=== PATIENT | male | born 1980 | race Caucasian/White ===

== ENCOUNTER 2016-06-03 23:28 | Emergency (ER) | payer OTHER ==
[~2016-06-03] VITALS: Ht 175.3 cm; Wt 96.6 kg
[~2016-06-03 23:28] MED LIST: MELA1TAB49 PO
[2016-06-03 23:44] VITALS: TEMP 36.5; Ht 175.3 cm; Wt 96.6 kg
[2016-06-04] MEDS ORDERED: OXYC1TAB3 PO (00:04)
[2016-06-04] MEDS ORDERED: PENI-82 PO (00:04)
[2016-06-04] MEDS ORDERED: ATOR10TA88 PO (00:08)
[2016-06-04] MEDS ORDERED: MELO7.5T5 PO (00:08)
--- NOTE | 2016-06-04 00:08 | EMERGENCY ROOM VISIT NOTE ---
History First contact with patient: 23:46 Chief Complaint: FACIAL PAIN/INJURY Stated Complaint: FACIAL PAIN, DENTAL PAIN History of Present Illness The patient is a 36 year old male who presents to the Emergency Room with complaints of left lower dental pain. The patient reports that he noticed some discomfort in his gum approximately 2 weeks ago. It appears to be spreading rearward. He reports that the pain was intermittent in nature initially, but is now becoming more constant. He reports that the pain significantly worsen tonight after eating a hot cheesesteak sub. He has not noticed any drainage or foul taste. He rates his discomfort a 2 out of 10 at this point, but rates his pain a 10 out of 10 at its worst. Review of Systems 10 system review was performed and was negative except for pertinent positives and negatives as indicated in history of present illness Past Medical/Surgical History Surgical Problems: (1) Hx of tonsillectomy Family History Cancer Diabetes mellitus Heart disease Hypertension Social History Smoking Status: Never Smoker Alcohol Use: occasionally Marital Status: single Housing Status: lives with roommate Occupation Status: employed Current/Historical Medications Scheduled Penicillin V Potassium (Veetids), 500 MG PO QID Scheduled PRN Melatonin (Melatonin), 3 MG PO HS PRN for Sleep Oxycodone Ir (Roxicodone Ir), 1-2 TAB PO Q4H PRN for Pain Allergies Coded Allergies: Fexofenadine (Verified Allergy, Unknown, 01/22/16) Molds and Smuts (Verified Allergy, Unknown, 01/22/16) Terfenadine (Verified Allergy, Unknown, 01/22/16) Uncoded Allergies: SPRINGER (Allergy, Unknown, allergy, 10/08/14) Physical Exam Vital Signs Date Time Temp Pulse Resp B/P Pulse Ox O2 Delivery O2 Flow Rate FiO2 06/03/16 23:44 36.5 61 20 145/80 96 Room Air Physical Exam CONSTITUTIONAL: Healthy and well nourished. Alert and oriented X 3 with positive affect. HEENT: Normocephalic, atraumatic. Pupils equal, round and reactive. No facial edema noted. OROPHARYNX: The patient has no obvious mandibular gingival erythema, fluctuance or pointing. He does have mild discomfort with percussion of several anterior teeth. Mild gingivitis is appreciated. No evidence for Dioni's angina or pharyngeal abscess. NECK: Full active range of motion without discomfort. LYMPHATICS: No cervical chain adenopathy. MUSCULOSKELETAL: Full range of motion of all joints without discomfort. INTEGUMENTARY: No rash or other significant dermatologic conditions noted. NEUROLOGIC: Facial sensations are intact. Medical Decision & Procedures ED Course Patient history and physical exam were performed. Nurse's notes were reviewed. The patient was provided home packs and prescriptions for Pen-Vee K and OxyIR 5 mg. He was also encouraged to alternate ibuprofen and Tylenol for baseline pain relief. The patient was instructed to follow-up with his dentist for further definitive management. The patient was happy with plan of care, voiced understanding of all discharge instructions, and rated his pain a 2 out of 10 at the time of discharge. Medical Decision Impression Primary Impression: Pain, dental Departure Information Dispostion Home / Self-Care Prescriptions Oxycodone Ir (Roxicodone Ir) 5 Mg Tab 1-2 TAB PO Q4H Y for Pain, #15 TAB For Initial Treatment Prov: Elier Caceres PA 06/04/16 Penicillin V Potassium (Veetids) 500 Mg Tab 500 MG PO QID, #40 TAB Prov: Elier Caceres PA 06/04/16 Forms HOME CARE DOCUMENTATION FORM, IMPORTANT VISIT INFORMATION Patient Instructions My [facility] [address] Additional Instructions Finish all Pen-Vee K antibiotics as prescribed. Ibuprofen 800 mg and/or Tylenol 1000 mg every 8 hours. You may also alternate these medications for more effective pain relief: Ibuprofen --4 HRS--> Tylenol --4 HRS--> ibuprofen --4 HRS--> Tylenol .... OxyIR if needed for worse pain. Do not drink or drive while taking OxyIR. Soft foods. Follow-up with your dentist for definitive care.
[2016-06-04] MEDS ORDERED: OXYCODONE IR HOME PACK PO ONE (00:15)
[2016-06-04] MEDS ORDERED: PENICILLIN HOME PACK 500MG (4 DOSES)BTL PO ONE (00:15)
[2016-06-04 00:27] VITALS: BP 116/56; PULSE 62; O2SAT 98
== END 2016-06-04 00:30 | disposition home or self-care (01) ==
LOC: C.EDB 23:28
DX: K08.89 Other specified disorders of teeth and supporting structures (principal); Z98.890 Other specified postprocedural states; Z88.8 Allergy status to other drugs, medicaments and biological substances; Z91.09 Other allergy status, other than to drugs and biological substances; Z80.9 Family history of malignant neoplasm, unspecified; Z83.3 Family history of diabetes mellitus; Z82.49 Family history of ischemic heart disease and other diseases of the circulatory system

== ENCOUNTER → 2016-08-11 | Outpatient (CLI) | payer OTHER ==
[~2016-08-11] MED LIST changes: +ATOR10TA82 PO; -MELA1TAB49 PO; +MELO7.5T5 PO; +OXYC1TAB3 PO; +PENI-82 PO
[2016-08-11 10:42] LABS: ALT/SGPT 67 U/L (12-78); AST/SGOT 25 U/L (15-37); BLOOD UREA NITROGEN 23 mg/dl (7-18); CALCIUM 9.2 mg/dl (8.5-10.1); CARBON DIOXIDE 28 mmol/L (21-32); CHLORIDE 103 mmol/L (98-107); GLUCOSE 88 mg/dl (70-99); POTASSIUM 3.6 mmol/L (3.5-5.1); SODIUM 138 mmol/L (136-145)
[2016-08-11 10:44] LABS: ALB/GLOB RATIO 1.1 (0.9-2); ALKALINE PHOSPHATASE 63 U/L (45-117); CHOLESTEROL 183 mg/dl (0-200); CHOLESTEROL/HDL RATIO 3.7; HDL CHOLESTEROL 50 mg/dl; LDL CHOLESTEROL CALCULATED 113 mg/dl; TRIGLYCERIDES 101 mg/dl (0-150); VERY LOW DENSITY LIPOPROT CALC 20 mg/dl
== END | disposition home or self-care (01) ==
LOC: C.LAB 08:56
PROVIDERS: ATTEND Nurse Practitioner Family
DX: E78.00 Pure hypercholesterolemia, unspecified (principal); M79.609 Pain in unspecified limb

== ENCOUNTER → 2016-11-08 | Outpatient (CLI) | payer OTHER ==
[~2016-11-08] MED LIST changes: -ATOR10TA82 PO; +ATOR10TA88 PO
--- NOTE | 2016-11-08 11:11 | DIAGNOSTIC IMAGING REPORT ---
CHEST 2 VIEWS ROUTINE CLINICAL HISTORY: Chest pain status post trauma COMPARISON STUDY: No previous studies for comparison. FINDINGS: The cardiac and mediastinal contours are normal. There is subtle nonspecific right basilar interstitial thickening. There is no failure. There is minor blunting of the right lateral costophrenic angle suggesting a trace pleural effusion.[ No pneumothorax is visualized. IMPRESSION: 1. No evidence of pneumothorax 2. Trace right pleural effusion 3. Nonspecific right basilar interstitial opacities Electronically signed by: Hector Alaniz M.D. 11/08/2016 11:10 AM Dictated Date/Time: 11/08/2016 11:08 AM
--- NOTE | 2016-11-08 11:12 | DIAGNOSTIC IMAGING REPORT ---
LEFT RIBS UNILATERAL MIN 2 VIEWS CLINICAL HISTORY: Left rib pain status post trauma COMPARISON STUDY: No previous studies for comparison. FINDINGS: There is no pneumothorax. There is a left seventh rib fracture. IMPRESSION: Left seventh rib fracture. No evidence of pneumothorax. Electronically signed by: Hector Alaniz M.D. 11/08/2016 11:11 AM Dictated Date/Time: 11/08/2016 11:10 AM
== END | disposition home or self-care (01) ==
LOC: C.RADBC 10:46
PROVIDERS: ATTEND Internal Medicine
DX: S29.9XXA Unspecified injury of thorax, initial encounter (principal); X58.XXXA Exposure to other specified factors, initial encounter; R91.8 Other nonspecific abnormal finding of lung field; S22.32XA Fracture of one rib, left side, initial encounter for closed fracture

== ENCOUNTER → 2017-01-07 | Outpatient (CLI) | payer OTHER ==
[~2017-01-07] MED LIST changes: -OXYC1TAB3 PO; -PENI-82 PO
--- NOTE | 2017-01-07 10:24 | DIAGNOSTIC IMAGING REPORT ---
LEFT RIBS UNILATERAL WITH PA CHEST CLINICAL HISTORY: LEFT RIB FRACTURE COMPARISON STUDY: 72,017 FINDINGS: Slightly displaced fracture left seventh rib showing no significant change from the prior study. Interval development of healing fractures of left sixth and eighth ribs. Alignment appears to be anatomic. These are not seen in the prior study. IMPRESSION: 1. Healing fractures left sixth and eighth ribs demonstrating anatomic alignment. 2. Mildly distracted fracture left seventh rib showing no significant interval change compared to the prior study. The above report was generated using voice recognition software. It may contain grammatical, syntax or spelling errors. Electronically signed by: Binh Emery M.D. 01/07/2017 10:23 AM Dictated Date/Time: 01/07/2017 10:20 AM
== END | disposition home or self-care (01) ==
LOC: C.RAD 09:56
PROVIDERS: ATTEND Nurse Practitioner Family
DX: S22.42XD Multiple fractures of ribs, left side, subsequent encounter for fracture with routine healing (principal); X58.XXXD Exposure to other specified factors, subsequent encounter

== ENCOUNTER → 2017-02-19 | Outpatient (CLI) | payer OTHER ==
[2017-02-19 12:22] LABS: ALT/SGPT 46 U/L (12-78); BLOOD UREA NITROGEN 19 mg/dl (7-18); BUN/CREATININE RATIO 19.5 (10-20); CALCIUM 9.5 mg/dl (8.5-10.1); CARBON DIOXIDE 29 mmol/L (21-32); CHLORIDE 104 mmol/L (98-107); CHOLESTEROL 279 mg/dl (0-200); CREATININE 0.99 mg/dl (0.60-1.40); GLUCOSE 92 mg/dl (70-99); MAGNESIUM 2.3 mg/dl (1.8-2.4); POTASSIUM 4.1 mmol/L (3.5-5.1); SODIUM 138 mmol/L (136-145)
[2017-02-19 12:26] LABS: ALKALINE PHOSPHATASE 61 U/L (45-117); AST/SGOT 23 U/L (15-37); CHOLESTEROL/HDL RATIO 6.1; HDL CHOLESTEROL 46 mg/dl; LDL CHOLESTEROL CALCULATED 198 mg/dl; TRIGLYCERIDES 174 mg/dl (0-150); VERY LOW DENSITY LIPOPROT CALC 35 mg/dl
--- NOTE | 2017-02-19 19:19 | DIAGNOSTIC IMAGING REPORT ---
PA CHEST WITH LEFT-SIDED RIB SERIES CLINICAL HISTORY: Follow-up rib fracture. FINDINGS: A PA chest radiograph with 4 additional views may left-sided rib series is compared to study dated 01/07/2017. The cardiomediastinal silhouette is unremarkable. The lungs and pleural spaces are clear. No pneumothorax is seen. There are healing left lateral seventh and eighth rib fractures. The previously characterized sixth rib fracture is not seen. The remainder of the bony thorax is grossly intact. IMPRESSION: 1. No active disease in the chest. 2. There are healing left lateral seventh and eighth rib fractures. Electronically signed by: Praveen Urbina M.D. 02/19/2017 7:18 PM Dictated Date/Time: 02/19/2017 7:15 PM
== END | disposition home or self-care (01) ==
LOC: C.LAB 09:57
PROVIDERS: ATTEND Nurse Practitioner Family
DX: Z00.00 Encounter for general adult medical examination without abnormal findings (principal); S22.39XA Fracture of one rib, unspecified side, initial encounter for closed fracture; X58.XXXA Exposure to other specified factors, initial encounter; E78.00 Pure hypercholesterolemia, unspecified; E55.9 Vitamin D deficiency, unspecified

== ENCOUNTER → 2017-08-12 | Outpatient (CLI) | payer OTHER ==
[~2017-08-12] MED LIST changes: +ATOR10TA82 PO; -ATOR10TA88 PO
[2017-08-12 12:08] LABS: BASO % 0.5 %; BASO ABS # 0.03 K/uL (0-0.2); EOS % 6.6 %; EOS ABS # 0.42 K/uL (0-0.5); HEMATOCRIT 44.1 % (42-52); HEMOGLOBIN 15.6 g/dL (14.0-18.0); IG# 0.02 K/uL (0.00-0.02); LYMPH % 28.4 %; LYMPH ABS # 1.82 K/uL (1.2-3.4); MEAN CELL VOLUME 87.5 fL (80-100); MEAN CORPUSCULAR HGB CONC 35.4 g/dl (32-36); MEAN PLATELET VOLUME 12.2 fL (7.4-10.4); MONO % 6.1 %; MONO ABS # 0.39 K/uL (0.11-0.59); NEUT % 58.1 %; NEUT ABS # 3.73 K/uL (1.4-6.5); PLATELET COUNT 212 K/uL (130-400); RED CELL DISTRIBUTION WIDTH CV 13.3 % (11.5-14.5); RED CELL DISTRIBUTION WIDTH SD 42.5 fL (36.4-46.3); WHITE BLOOD COUNT 6.41 K/uL (4.8-10.8)
[2017-08-12 12:22] LABS: ALBUMIN 4.2 gm/dl (3.4-5.0); ALT/SGPT 55 U/L (12-78); BLOOD UREA NITROGEN 26 mg/dl (7-18); CALCIUM 9.6 mg/dl (8.5-10.1); CARBON DIOXIDE 29 mmol/L (21-32); CREATININE 1.02 mg/dl (0.60-1.40); GLUCOSE 87 mg/dl (70-99); POTASSIUM 4.2 mmol/L (3.5-5.1); SODIUM 137 mmol/L (136-145)
[2017-08-12 12:27] LABS: ALKALINE PHOSPHATASE 62 U/L (45-117); AST/SGOT 23 U/L (15-37); CHOLESTEROL 190 mg/dl (0-200); LDL CHOLESTEROL CALCULATED 126 mg/dl
== END | disposition home or self-care (01) ==
LOC: C.LAB1850 09:36
PROVIDERS: ATTEND Nurse Practitioner Family
DX: E78.00 Pure hypercholesterolemia, unspecified (principal); E55.9 Vitamin D deficiency, unspecified; S22 Fracture of rib(s), sternum and thoracic spine; X58.XXXD Exposure to other specified factors, subsequent encounter